=== PATIENT | male | born 1965 | race Caucasian/White ===

== ENCOUNTER 2016-06-01 14:04 | Emergency (ER) | payer OTHER ==
--- NOTE | 2016-06-01 14:07 | EDPHY ---
H & P Time Seen by Provider: 06/01/16 14:06 HPI/ROS: CHIEF COMPLAINT: Weeks of nonexertional chest pain HISTORY OF PRESENT ILLNESS: The patient presents to the ED for evaluation of several weeks of nonexertional intermittent migratory chest pain. Over the past several days the patient has had some paresthesias involving his left hand. The patient states that his symptoms are not precipitated by exertion and typically feel better with exertion. The patient denies fever, cough or congestion. The patient denies asymmetric calf pain or swelling. The patient denies history of PE or DVT. The patient has no cardiac risk factors. The patient is currently asymptomatic. The patient attempted to schedule a follow- up appointment with Cardiology and referred to the ED. REVIEW OF SYSTEMS: A comprehensive 10 point review of systems is otherwise negative aside from elements mentioned in the history of present illness. Source: Patient Exam Limitations: No limitations - Medical/Surgical History PMH: Past medical history: Negative - Family History Significant Family History: No pertinent family hx - Social History Smoking Status: Never smoked - Physical Exam Exam: General Appearance: Alert, no distress Eyes: Pupils equal and round no pallor or injection ENT, Mouth: Mucous membranes moist Respiratory: There are no retractions, lungs are clear to auscultation Cardiovascular: Regular rate and rhythm Gastrointestinal: Abdomen is soft and nontender, no masses, bowel sounds normal Neurological: A&O, normal motor function, normal sensory exam, normal cranial nerves Skin: Warm and dry, no rashes Musculoskeletal: Neck is supple nontender Extremities: symmetrical, full range of motion Constitutional: Initial Vital Signs Temperature (C) 36.6 C 06/01/16 14:05 Heart Rate 76 06/01/16 14:05 Respiratory Rate 16 06/01/16 14:05 Blood Pressure 135/87 H 06/01/16 14:05 O2 Sat (%) 98 06/01/16 14:05 O2 Delivery Mode Room Air Allergies/Adverse Reactions: No Known Allergies Allergy (Unverified 06/01/16 14:18) Home Medications: Medication Instructions Recorded NK [No Known Home Meds] 06/01/16 Medical Decision Making - Diagnostics EKG Interpretation: EKG: Complete interpretation has been separately recorded in the [facility] archive. Summary impression: Sinus rhythm Imaging: Chest x-ray PA lateral: Images reviewed by myself, negative for acute disease, cardiomegaly or other acute abnormality. Interpretation by x-ray currently pending. ED Course/Re-evaluation: The patient presents to the ED with several weeks of atypical chest pain. The patient's EKG and troponin are normal. The patient has no risk factors for cardiac disease. I did explain to the patient that there is no evidence of myocardial infarction at this point time. Given his age I do feel that he should be seen in the next 72 hours for a treadmill stress test. I discussed the case with Dr. Kong from Cardiology who is happy to make arrangements patient to be seen in sign this. The patient has directed to return to the ED for any change in chest pain that becomes exertional or more severe. Differential Diagnosis: Differential diagnosis considered includes acute coronary syndrome, esophageal spasm, myocardial infarction, costochondritis, peripheral neuropathy, pneumothorax, pneumonia - Data Points Laboratory Results: Laboratory Results 06/01/16 13:45 06/01/16 13:45 06/01/16 13:45 WBC 7.33 10^3/uL (3.80-9.50) RBC 5.17 10^6/uL (4.40-6.38) Hgb 16.3 g/dL (13.7-17.5) Hct 46.7 % (40.0-51.0) MCV 90.3 fL (81.5-99.8) MCH 31.5 pg (27.9-34.1) MCHC 34.9 g/dL (32.4-36.7) RDW 12.6 % (11.5-15.2) Plt Count 293 10^3/uL (150-400) MPV 10.0 fL (8.7-11.7) Neut % (Auto) 62.4 % (39.3-74.2) Lymph % (Auto) 24.7 % (15.0-45.0) [place] % (Auto) 8.2 % (4.5-13.0) Eos % (Auto) 4.0 % (0.6-7.6) Baso % (Auto) 0.4 % (0.3-1.7) Nucleat RBC Rel Count 0.0 % (0.0-0.2) Absolute Neuts (auto) 4.58 10^3/uL (1.70-6.50) Absolute Lymphs (auto) 1.81 10^3/uL (1.00-3.00) Absolute Monos (auto) 0.60 10^3/uL (0.30-0.80) Absolute Eos (auto) 0.29 10^3/uL (0.03-0.40) Absolute Basos (auto) 0.03 10^3/uL (0.02-0.10) Absolute Nucleated RBC 0.00 10^3/uL (0-0.01) Immature Gran % 0.3 % (0.0-1.1) Immature Gran # 0.02 10^3/uL (0.00-0.10) Sodium 143 mEq/L (134-144) Potassium 4.2 mEq/L (3.5-5.2) Chloride 105 mEq/L (97-110) Carbon Dioxide 26 mEq/l (22-31) Anion Gap 12 mEq/L (8-16) BUN 16 mg/dL (7-23) Creatinine 1.0 mg/dL (0.7-1.3) Estimated GFR > 60 Glucose 92 mg/dL (70-100) Calcium 9.2 mg/dL (8.5-10.4) Troponin I 0.013 ng/mL (0-0.034) Departure - Departure Disposition: Home, Routine, Self-Care Clinical Impression: Chest pain Condition: Good Instructions: Chest Pain (ED) Additional Instructions: 1. Based upon the testing done in the Emergency Department today we see no evidence of a heart attack. 2. We are unable to fully exclude coronary artery disease based upon the testing available in the Emergency Department. 3. For this reason, we would like you to be seen by cardiology for consideration of additional testing within the next 3 days. 4. Please contact the [facility] paraprofessional you have been referred to schedule this appointment as soon as possible. Their offices are typically open from 8:30am- 5pm M-F. When you contact Dr. Kong is office please let them know that you were seen in the ED an your case discussed with Dr. Kong. In that you should be scheduled for a treadmill stress test within the next 3 days. 5. Please return to the Emergency Department immediately for any recurrent chest pain, difficulty breathing or other concerns. Referrals: Oziel Kong MD [Medical Doctor] - As per Instructions
--- NOTE | 2016-06-01 14:19 | CPEKG ---
Heart Rate: 76 RR Interval: 789 P-R Interval: 172 QRSD Interval: 90 QT Interval: 392 QTC Interval: 441 P Rowdy: 55 QRS Rowdy: 106 T Wave Rowdy: 37 EKG Severity - ABNORMAL ECG - EKG Impression: SINUS RHYTHM EKG Impression: VENTRICULAR PREMATURE COMPLEX EKG Impression: PROBABLE RIGHT VENTRICULAR HYPERTROPHY Electronically Signed By: Remy Tyler 01-Jun-2016 14:25:27
[2016-06-01 14:25] LABS: % IMMATURE GRANULYOCYTES 0.3 % (0.0-1.1); ABSOLUTE IMMATURE GRANULOCYTES 0.02 10^3/uL (0.00-0.10); ADD DIFF? NO; ADD MORPH? NO; ADD SCAN? NO; ATYPICAL LYMPHOCYTE FLAG 0 (0-99); FRAGMENT RBC FLAG 0 (0-99); HEMATOCRIT 46.7 % (40.0-51.0); HEMOGLOBIN 16.3 g/dL (13.7-17.5); LEFT SHIFT FLG 0 (0-99); LIPEMIA HEMOLYSIS FLAG 90 (0-99); MEAN CELL HEMOGLOBIN 31.5 pg (27.9-34.1); MEAN CELL HEMOGLOBIN CONCENTR. 34.9 g/dL (32.4-36.7); MEAN CELL VOLUME 90.3 fL (81.5-99.8); PLATELET CLUMPS FLAG 10 (0-99); PLATELET COUNT 293 10^3/uL (150-400); RED BLOOD CELL COUNT 5.17 10^6/uL (4.40-6.38); RED CELL DISTRIBUTION WIDTH 12.6 % (11.5-15.2)
[2016-06-01 14:39] LABS: ANION GAP 12 mEq/L (8-16); CALCIUM 9.2 mg/dL (8.5-10.4); CARBON DIOXIDE 26 mEq/l (22-31); CHLORIDE 105 mEq/L (97-110); GLOMERULAR FILTRATION RATE > 60; GLUCOSE 92 mg/dL (70-100); POTASSIUM 4.2 mEq/L (3.5-5.2); SODIUM 143 mEq/L (134-144)
[2016-06-01 14:49] LABS: TROPONIN I 0.013 ng/mL (0-0.034)
[2016-06-01 15:09] VITALS: O2SAT 93
[2016-06-01 16:17] VITALS: BP 108/76; PULSE 73; RESP 15; TEMP 98.2
--- NOTE | 2016-06-01 16:20 | DX ---
Portable Chest 1512 History: Chest pain x2 weeks Comparison: None Findings: Lungs clear. Heart and mediastinum are normal. No pneumothorax, pneumomediastinum or pleura l effusion. EKG leads overlie the chest. Impression: Negative.
== END 2016-06-01 16:17 | disposition home or self-care (01) ==
DX: R07.9 Chest pain, unspecified (principal)